=== PATIENT | male | born 1970 | race Two or more races ===

== ENCOUNTER 2016-10-21 18:18 | Emergency (ER) | payer BC ==
[~2016-10-21] VITALS: Ht 162.6 cm; Wt 79.4 kg
[2016-10-21 18:24] VITALS: BP 107/75
--- NOTE | 2016-10-21 18:38 | ED.ADGEN ---
Past Medical History Past Medical History: No Pertinent History Past Surgical History: No Surgical History Alcohol Use: None Drug Use: None Adult General Chief Complaint Chief Complaint: NOSEBLEED HPI HPI Patient is a 46 year old male presents emergency department complaining of nosebleed for last 30 minutes. Patient states he has not been able to get a stop with direct pressure. He tells me they have a similar episode one week ago stopped about 2-3 minutes with direct pressure. Patient is not anticoagulated or have any other blood dyscrasias that he knows of. He denies any chest pain, dyspnea, lightheadedness. Review of Systems Review of Systems Constitutional: Denies fever or chills. [] Eyes: Denies change in visual acuity. [] HENT: Denies nasal congestion or sore throat. [] Respiratory: Denies cough or shortness of breath. [] Cardiovascular: Denies chest pain or edema. [] GI: Denies abdominal pain, nausea, vomiting, bloody stools or diarrhea. [] : Denies dysuria. [] Musculoskeletal: Denies back pain or joint pain. [] Integument: Denies rash. [] Neurologic: Denies headache, focal weakness or sensory changes. [] Endocrine: Denies polyuria or polydipsia. [] Lymphatic: Denies swollen glands. [] Psychiatric: Denies depression or anxiety. [] Current Medications Current Medications Current Medications Medications (Trade) Dose Ordered Sig/Kyle Start Time Stop Time Status Last Admin Dose Admin Oxymetazoline HCl (Afrin) 2 spray 1X ONCE 10/21/16 18:45 10/21/16 18:46 DC 10/21/16 18:35 2 SPRAY Allergies Allergies Allergies Coded Allergies Type Severity Reaction Last Updated Verified No Known Drug Allergies 07/07/14 No Physical Exam Physical Exam Constitutional: Well developed, well nourished, no acute distress, non-toxic appearance. [] HENT: Normocephalic, atraumatic, bilateral external ears normal, oropharynx moist, no oral exudates, active bleeding from the right nares [] Eyes: PERRLA, EOMI, conjunctiva normal, no discharge. [] Neck: Normal range of motion, no tenderness, supple, no stridor. [] Cardiovascular:Heart rate regular rhythm, no murmur [] Lungs & Thorax: Bilateral breath sounds clear to auscultation [] Abdomen: Bowel sounds normal, soft, no tenderness, no masses, no pulsatile masses. [] Skin: Warm, dry, no erythema, no rash. [] Extremities: No tenderness, no cyanosis, no clubbing, ROM intact, no edema. [] Neurologic: Alert and oriented X 3, normal motor function, normal sensory function, no focal deficits noted. [] Psychologic: Affect normal, judgement normal, mood normal. [] Current Patient Data Vital Signs Vital Signs Date Time Temp Pulse Resp B/P Pulse Ox O2 Delivery O2 Flow Rate FiO2 10/21/16 18:24 98.7 87 20 107/75 94 Room Air 98.7 EKG EKG [] Radiology/Procedures Radiology/Procedures [] Course & Med Decision Making Course & Med Decision Making Pertinent Labs and Imaging studies reviewed. (See chart for details) 1835 - we will try a simple approach of Afrin and direct pressure for 15 or 20 minutes. 1900 - bleeding controlled, will continue to observe [] Dragon Disclaimer Dragon Disclaimer This electronic medical record was generated, in whole or in part, using a voice recognition dictation system. POLO LANGSTON MD Oct 21, 2016 18:38
[2016-10-21] MEDS ORDERED: OXYMETAZOLINE 0.05% NASAL SPRAY 30ML BOTTLE. NS ONE (18:45)
== END 2016-10-21 19:40 | disposition home or self-care (01) ==
LOC: ER 18:18
DX: R04.0 Epistaxis (principal)
CPT/HCPCS: 99283